=== PATIENT | male | born 1990 | race Caucasian/White ===

== ENCOUNTER 2025-01-15 22:11 | Emergency (ER) | payer OTHER ==
[~2025-01-15] VITALS: Ht 182.9 cm; Wt 67.3 kg
[2025-01-16 02:42] VITALS: BP 119/71; TEMP 97.7; O2SAT 98
== END 2025-01-16 02:43 | disposition home or self-care (01) ==
LOC: M ED 01-16
DX: S02.2XXA Fracture of nasal bones, initial encounter for closed fracture (principal); X58.XXXA Exposure to other specified factors, initial encounter; Y92.9 Unspecified place or not applicable; Y93.44 Activity, trampolining; Y99.9 Unspecified external cause status; K02.9 Dental caries, unspecified; I10 Essential (primary) hypertension; F17.200 Nicotine dependence, unspecified, uncomplicated; F12.10 Cannabis abuse, uncomplicated

== ENCOUNTER 2025-06-09 16:29 | Emergency (ER) | payer OTHER ==
[~2025-06-09] VITALS: Ht 182.9 cm; Wt 67.7 kg
[2025-06-09 17:45] LABS: BASO # 0.1 10^3/uL (0.0-0.2); BASO % 1.0 % (0.0-1.0); EOS # 0.1 10^3/uL (0.0-0.5); EOS % 1.8 % (0.0-3.0); LYMPH # 1.7 10^3/uL (1.5-5.0); LYMPH % 24.6 % (24.0-44.0); MONO # 0.7 10^3/uL (0.0-0.8); MONO % 10.3 % (2.0-8.0); NEUTROPHILS # 4.2 10^3/uL (1.5-8.5); NEUTROPHILS % 61.4 % (36.0-66.0); PLATELET COUNT, AUTOMATED 258 10^3/uL (150-450)
[2025-06-09 18:06] LABS: ERYTHROCYTE SEDIMENTATION RATE 57 mm/hr (0-15)
[2025-06-09 18:21] LABS: C REACTIVE PROTEIN QUANTITATIV 3.84 MG/DL (<1.0); CALCIUM LEVEL 9.3 MG/DL (8.5-10.1); CARBON DIOXIDE LEVEL 30 MMOL/L (20-31); CHLORIDE LEVEL 98 MMOL/L (98-107); CREATININE FOR GFR 0.83 MG/DL (0.70-1.30); GLOMERULAR FILTRATION RATE > 90.0 (>60); POTASSIUM SERUM 3.7 MMOL/L (3.5-5.1); SODIUM LEVEL 136 MMOL/L (136-145)
[2025-06-09 18:54] VITALS: TEMP 98.5
[2025-06-09] MEDS: DALBAVANCIN 1,500 MG in D5W 250 ML IV ONE (19:55)
[2025-06-09] MEDS ORDERED: CIPR-249 PO (20:26)
[2025-06-09 20:29] VITALS: O2SAT 100
[2025-06-09 20:30] VITALS: BP 106/61
== END 2025-06-09 20:35 | disposition home or self-care (01) ==
LOC: M ED 16:29
DX: L03.115 Cellulitis of right lower limb (principal); F17.200 Nicotine dependence, unspecified, uncomplicated
CPT/HCPCS: 80048; 83605; 85025; 85652; 86140; 87040; 96365; 99284; J0875